=== PATIENT | female | born 1990 | race Caucasian/White ===

== ENCOUNTER 2019-01-05 14:00 | Emergency (ER) | payer OTHER, SELFPAY ==
[2019-01-05 14:04] VITALS: BP 115/76; PULSE 93; RESP 17; TEMP 36.9; O2SAT 99; BMI 23.8
[2019-01-05 15:00] VITALS: BP 117/79; PULSE 85; RESP 16; O2SAT 99
--- NOTE | 2019-01-05 15:12 | ED.HA ---
HPI - Headache <Mynor AndreaRONAK Wang - Last Filed: 01/06/19 01:50> General Chief Complaint: Headache Stated Complaint: DIZZY SHARP PAIN HEAD NAUSEA NUMBNESS OF HANDS Time Seen by Provider: 01/05/19 14:42 Source: patient and family Mode of arrival: ambulatory Limitations: no limitations History of Present Illness HPI Narrative: This is a 28-year-old female, nonsmoker, who presents with her spouse to ED with sudden onset of severe headache and she describes as lightening bolt at 1210 today when she was at work and she was sitting at the desk without exerting herself at this time. She felt dizzy, numbness to her hands, nauseated and had washing sounds in her ears. She also mentions about a week prior to this. She felt sharp and pressure-like left-sided headache and had a popped feel in the head and head pressure. During college, she had head trauma when she dropped onto her head and head concussion when she was cheering. Then again, without appropriate resting, she had dropped on her head again which sustained temporary left eye vision lost. She reports she has frequent headaches but this time headache felt different. Her usual migraine dull headache remains in left-sided top of her head and behind her eyes this with nausea, photosensitivity which lasts for 1-2 hours. Patient tried 1 of the blood pressure medication as prophylactically but she felt dizzy so she stopped after using for a week. Also her PCP prescribed 1 of the triptans and so far used twice. According to the patient's , patient seems confused that she did not know where she was at on the way to emergency room. Also he states that patient seems slow to respond verbally and also noticed slow movements. Patient denies weakness to limbs, facial droops, difficulty with balance at this time. The last LMP was April 2018. Prior to this she had a spontaneous miscarriage and since then her normal menstruation had not returned. Related Data Allergies Allergy/AdvReac Type Severity Reaction Status Date / Time latex Allergy Verified 01/05/19 14:09 minocycline Allergy Verified 01/05/19 14:09 Review of Systems <RONAK Brown - Last Filed: 01/06/19 01:50> Review of Systems General: Denies fever, chills, fatigue, malaise, sweats. HEENT: Denies sinus pain, ear pain, sore throat, difficulty swallowing. Respiratory: Denies dyspnea, cough, wheezing, hemoptysis, sputum. Cardiovascular: Denies chest pain, palpitations, orthopnea, edema. Gastrointestinal: Reports nausea. Denies vomiting, abdominal pain, diarrhea, constipation, melena. : Denies dysuria, frequency, incontinence, hematuria, urinary retention. Musculoskeletal: Denies weakness, joint pain or bony pain. Skin: Denies rash, skin lesions, or other. Neurologic: See HPI Psychiatric: No concerning psychosocial issues. 12-point review of systems is negative except for those stated above. PFSH <RONAK Brown - Last Filed: 01/06/19 01:50> Medical History Migraine headache (Acute) Spontaneous (Chronic) Social History Smoking Status: Unknown if ever smoked Social History (Updated 01/06/19 @ 01:25 by RONAK Brown) Smoking Status: Never smoker Exam <RONAK Brown - Last Filed: 01/06/19 01:50> Narrative Exam Narrative: GEN: Alert, oriented x 3, well appearing and nourished, and in no acute distress. Head: Normal cephalic, atraumatic. No scalp or temporal tenderness, palpable mass or rash. EYES: Pupils are equal, round, and reactive to light and accommodation. Extraocular muscles are intact bilaterally. There is no subconjunctival hemorrhage, exudate and sclera non-icteric. ENT: Hearing grossly intact. Nose without bleeding, purulent discharge. Mucous membrane moist, no mucosal lesion. Throat without erythema, tonsillar hypertrophy or exudate. Uvula in midline, airway patent. Neck: Trachea in midline. No JVD, non-tender without lymphadenopathy. No masses or thyroid megaly. Supple, non-tender and meningeal signs. CARDIAC: Normal regular rate and rhythm without murmurs, gallops, or rubs. No chest wall tenderness. No peripheral edema, cyanosis or pallor. Capillary refill is less than 2 seconds. No carotid bruits. RESPIRATORY: Lungs are cleat to auscultate bilaterally. No cough, wheezes, rales, or rhonchi. No stridor, respiratory distress, increase work of breathing, or accessary muscle used. ABD: Abdomen soft, nontender and non-distended. No guarding or rebound tenderness to palpate. Bowel sounds are normal in all 4 quadrants. There is no palpable masses or organomegaly. EXT: Full painless ROM of all extremities with no loss of sensation, strength, effusion or edema. SKIN: Warm, dry, normal color for patient. No erythema, lesions or rash. BACK: Nontender without deformity or crepitance. No flank tenderness. NEUROLOGICAL: Alert and oriented to place, time and person. No facial droops, dysphasia. CN II-XII intact. Strength and sensation symmetric on upper extremities. Decreased strength in bilateral lower extremities. Reflexes 2+ throughout. Cerebellar testing normal but slow. Slow to verbally response to questions. PSYCHIATRIC: Good judgement and reason, without hallucinations, abnormal affect or abnormal behaviors during the examination. Initial Vital Signs Initial Vital Signs: Vital Signs Temperature 98.4 F 01/05/19 14:04 Pulse Rate 93 H 01/05/19 14:04 Respiratory Rate 17 01/05/19 14:04 Blood Pressure 115/76 01/05/19 14:04 Pulse Oximetry 99 01/05/19 14:04 <Kristin Garcia DO - Last Filed: 01/06/19 19:27> Initial Vital Signs Initial Vital Signs: Vital Signs Temperature 98.4 F 01/05/19 14:04 Pulse Rate 93 H 01/05/19 14:04 Respiratory Rate 17 01/05/19 14:04 Blood Pressure 115/76 01/05/19 14:04 Pulse Oximetry 99 01/05/19 14:04 Scores <RONAK Brown - Last Filed: 01/06/19 01:50> GCS [place] coma scale eye opening: Spontaneous [place] coma scale verbal response: Orientated [place] coma scale motor response: Obey commands [place] coma scale total score: 15 Course <RONAK Brown - Last Filed: 01/06/19 01:50> Orders Ordered: Discontinued Medications Diphenhydramine HCl (Benadryl) 25 mg IV NOW ONE Stop: 01/05/19 15:54 Last Admin: 01/05/19 16:26 Dose: 25 mg Documented by: ALLISON Sodium Chloride (Normal Saline 0.9%) 1,000 mls @ 1,000 mls/hr IV BOLUS ONE Stop: 01/05/19 16:52 Last Infusion: 01/05/19 17:41 Dose: 0 mls/hr Documented by: Admin: 01/05/19 16:26 Dose: 1,000 mls/hr Documented by: ALLISON Ketorolac Tromethamine (Toradol) 30 mg IV NOW ONE Stop: 01/05/19 15:54 Last Admin: 01/05/19 16:26 Dose: 30 mg Documented by: ALLISON Metoclopramide HCl (Reglan) 10 mg IV NOW ONE Stop: 01/05/19 15:54 Last Admin: 01/05/19 16:27 Dose: 10 mg Documented by: ALLISON Vital Signs - 8 hr 01/05/19 17:30 Pulse Rate 98 H Respiratory Rate 19 Blood Pressure [Left Arm] 111/94 H Pulse Oximetry 100 <Kristin Garcia DO - Last Filed: 01/06/19 19:27> Orders Ordered: Discontinued Medications Diphenhydramine HCl (Benadryl) 25 mg IV NOW ONE Stop: 01/05/19 15:54 Last Admin: 01/05/19 16:26 Dose: 25 mg Documented by: ALLISON Sodium Chloride (Normal Saline 0.9%) 1,000 mls @ 1,000 mls/hr IV BOLUS ONE Stop: 01/05/19 16:52 Last Infusion: 01/05/19 17:41 Dose: 0 mls/hr Documented by: Admin: 01/05/19 16:26 Dose: 1,000 mls/hr Documented by: ALLISON Ketorolac Tromethamine (Toradol) 30 mg IV NOW ONE Stop: 01/05/19 15:54 Last Admin: 01/05/19 16:26 Dose: 30 mg Documented by: ALLISON Metoclopramide HCl (Reglan) 10 mg IV NOW ONE Stop: 01/05/19 15:54 Last Admin: 01/05/19 16:27 Dose: 10 mg Documented by: ALLISON Vital Signs - 8 hr 01/05/19 17:30 Pulse Rate 98 H Respiratory Rate 19 Blood Pressure [Left Arm] 111/94 H Pulse Oximetry 100 MDM - Headache <RONAK Brown - Last Filed: 01/06/19 01:50> Differential Diagnosis Differential diagnosis: Likely migraine, subarachnoid hemorrhage, headache and other (brain aneurysm) Medical Records Attestation: I reviewed the patient's medical records. Lab Data Point of Care Testing Test Results Negative Imaging Data CT scan - head: Radiologist's impression: [address] [address] [address] Scan Report Signed Patient: Bertha Haley [facility]#: [id number] : 1990Acct:[id number] Age/Sex: 28 / FDate of Service: 01/05/19 Loc: ED Accession Number: [id number] Procedure: CT head/brain wo con Ordering Provider: Mynor Jesus PROCEDURE: CT HEAD/BRAIN WO CON INDICATIONS: first time lighteing bolt headache, vision change, nausea TECHNIQUE: Noncontrast 4.5 mm thick angled axial sections acquired from the foramen magnum to the vertex, with coronal and sagittal reformats. For radiation dose reduction, the following was used: automated exposure control, adjustment of mA and/or kV according to patient size. COMPARISON: None. FINDINGS: Image quality: Excellent. CSF spaces: Basal cisterns are patent. No extra-axial fluid collections. Ventricles are normal in size and shape. Brain: No midline shift. No intracranial masses or hemorrhage. [place]-white matter interface is normal. Skull and face: Calvarium and visualized facial bones are intact, without suspicious lesions. Sinuses: Visualized sinuses and mastoids are clear. IMPRESSION: Negative head CT. No acute intracranial hemorrhage. Dictated by: George Santos M.D. on 01/05/2019 at 14:42 Approved by: George Santos M.D. on 01/05/2019 at 14:42 [facility] Narrative Medical decision making narrative: This patient is 28-year-old female presents to ED with sudden onset of severe atypical headache with neurological symptoms per her report and per physical exam. Head CT was obtained with negative acute findings. Urine test was negative. Patient was medicated with migraine headache medications-Toradol, Benadryl, Reglan and IV fluid. Patient reports much improved headache. Patient advised to follow up with primary care physician discussing of other options for prophylactic medications, a referral to headache clinic. Return precautions were discussed with patient and spouse they agree with treatment plan and no further questions were expressed at this time. <Kristin Garcia DO - Last Filed: 01/06/19 19:27> Lab Data Point of Care Testing Test Results Negative Discharge Plan Departure Patient Disposition: Home Clinical Impression: Migraine Qualifiers: Migraine type: unspecified Status migrainosus presence: without status migrainosus Intractability: not intractable Qualified Code(s): G43.909 - Migraine, unspecified, not intractable, without status migrainosus Discharge Date/Time: 01/05/19 17:57 Instructions: DI for Migraine Activity Restrictions/Additional Instructions: You have been diagnosed with [ headache, possibly migraine headache. Your CT scan today indicates no acute findings.]. What to do: *Take your medications as directed. Please continue with your current medication and there is no new medication to go home with today *Follow up with your primary care provider in 2-3 days, call for an appointment. Let them know you were seen in the ED and that we asked you to be seen in follow up. *Return to ED if you have any new, worsening, or concerning symptoms, such as [chest pain, breathing difficulty, unable to tolerate fluids, severe headache, vision change, weakness to limbs, speech difficulty, any acute concerns]. Referrals: [facility] [Outside] <Kristin Garcia DO - Last Filed: 01/06/19 19:27> Cosign ED Attending Chaparritaature Attestation: I was immediately available in the department for consultation. This documentation has been reviewed and I agree with assessment and plan. Supervised by Kristin Garcia DO
[2019-01-05 16:09] VITALS: BP 113/73; PULSE 75; RESP 15; O2SAT 100
[2019-01-05] MEDS: SODIUM CHLORIDE 0.9% 1,000 ML 1000 ML IV (16:26)
[2019-01-05] MEDS: diphenhydrAMINE 50 MG/ML VIAL 25 MG IV (16:26)
[2019-01-05] MEDS: KETOROLAC 60 MG/2 ML VIAL 30 MG IV (16:26)
[2019-01-05] MEDS: METOCLOPRAMIDE 10 MG/2 ML INJ IV (16:27)
[2019-01-05 16:30] VITALS: BP 101/49; PULSE 78; RESP 15; O2SAT 99
[2019-01-05 17:00] VITALS: BP 108/58; PULSE 77; RESP 15; O2SAT 100
[2019-01-05 17:30] VITALS: BP 111/94; PULSE 98; RESP 19; O2SAT 100
== END 2019-01-05 17:57 | disposition home or self-care (01) ==
PROVIDERS: Emergency Provider Nurse Practitioner Family
DX: G43.909 Migraine, unspecified, not intractable, without status migrainosus (principal)
CPT/HCPCS: 36591; 70450; 81025; 96361; 96374; 96375; 99283; 99284; J1200; J1885; J2765

== ENCOUNTER 2020-03-31 08:29 | Emergency (ER) | payer OTHER, SELFPAY ==
[2020-03-31 08:40] VITALS: BP 107/69; PULSE 88; RESP 16; TEMP 36.7; O2SAT 100; BMI 25.2
--- NOTE | 2020-03-31 09:07 | ED_ITS ---
HPI - Allergic Reaction General Chief complaint: Allergic Reaction Stated complaint: some sort of reaction,throat closing eyes swelling Time Seen by Provider: 03/31/20 08:45 Source: patient Mode of arrival: Family Vehicle Limitations: no limitations History of Present Illness HPI narrative: Patient is a 30-year-old female who presents with facial swelling and neck swelling. She has been having an ongoing rash for a few bloods. It is now on her neck and it has been there for a while as well she feels like it mi ght be getting a little bit worse. She denies any new exposures. She says she is able to speak and swallow without difficulty although her neck does feel tight. She woke up this morning and her face was puffy and her eyelids or red she says it might be getting little bit better. She actually took 50 mg of Benadryl prior to bed and woke up and felt like it was worse. She has not had any fever sweats or chills. MD complaint: facial swelling Related Data Previous Rx's Medication Instructions Recorded cephalexin [Keflex] 500 mg PO TID #21 cap 03/31/20 prednisone 40 mg PO DAILY #10 tab 03/31/20 Allergies Allergy/AdvReac Type Severity Reaction Status Date / Time latex Allergy Verified 03/31/20 08:39 minocycline Allergy Verified 03/31/20 08:39 Review of Systems Review of Systems Narrative: GENERAL: Denies chills, fatigue, malaise, fever, sweats, travel HEENT: Denies sinus pain, ear pain, sore throat, difficulty swallowing, neck pain RESPIRATORY: Denies dyspnea, cough, wheezing, hemoptysis, sputum. CARDIOVASCULAR: Denies chest pain, palpitations, orthopnea, edema GASTROINTESTINAL: Denies nausea, vomiting, abdominal pain, diarrhea, constipation, melena. : Denies dysuria, frequency, incontinence, hematuria, urinary retention, flank pain. MUSCULOSKELETAL: Denies weakness, joint pain, or bony pain SKIN: Ongoing skin rash which started in her armpits when she started a natural deodorant, now on her neck NEUROLOGIC: Denies weakness, dizziness, headache, numbness, change in speech, confusion PSYCHIATRIC: No concerning psychosocial issues. 12 point review of systems is negative except for those stated above and HPI Patient History Medical History (Updated 03/31/20 @ 10:31 by Natasha Guzmán DO) Migraine headache Spontaneous Social History Smoking Status: Never smoker Smoking Status: Never smoker alcohol intake frequency: holidays/special occasions only Substance Use Type: does not use Exam Initial Vital Signs Initial Vital Signs: Vital Signs Temperature 98.1 F 03/31/20 08:40 Pulse Rate 88 03/31/20 08:40 Respiratory Rate 16 03/31/20 08:40 Blood Pressure 107/69 03/31/20 08:40 Pulse Oximetry 100 03/31/20 08:40 GENERAL: Well-appearing, well-nourished and in no acute distress. HEENT: Head atraumatic,EOMI, pupils reactive, face is slightly swollen no erythema CARDIOVASCULAR: Regular rate and rhythm without murmurs, rubs or gallops. RESPIRATORY: Breath sounds equal bilaterally, no wheezes rales or rhonchi. Speaks in full sentences no difficulty ABDOMEN: Soft, nontender. Normoactive bowel sounds all 4 quadrants. No guarding or rebound. EXTREMITIES: Normal range of motion, no clubbing or edema. Neurovascularly intact NEUROLOGICAL: Alert and oriented x4.Normal gait and speech. SKIN: Mild erythema on the anterior neck from chin to sternum blanchable no vesicles Course Orders Ordered: ED Orders 03/31/20 08:45 Basic Metabolic Panel Urgent Complete Blood Count AUTO DIFF Stat Discontinued Medications Diphenhydramine HCl (Diphenhydramine 50 Mg/Ml Vial) 25 mg IV NOW ONE Stop: 03/31/20 09:07 Last Admin: 03/31/20 09:35 Dose: 25 mg Documented by: GLO Famotidine (Pepcid) 20 mg in 50 mls @ 200 mls/hr IV NOW ONE Stop: 03/31/20 09:20 Last Infusion: 03/31/20 10:39 Dose: 0 mls/hr Documented by: Admin: 03/31/20 09:35 Dose: 200 mls/hr Documented by: GLO Methylprednisolone (Methylprednisolone 125 Mg/2 Ml Vial) 125 mg IV NOW ONE Stop: 03/31/20 09:07 Last Admin: 03/31/20 09:32 Dose: 125 mg Documented by: GLO Vital Signs Vital signs: Vital Signs - 8 hr 03/31/20 08:40 03/31/20 09:40 03/31/20 10:55 Temperature 98.1 F Pulse Rate 88 82 80 Respiratory Rate 16 16 18 Blood Pressure 107/69 104/71 106/69 Pulse Oximetry 100 98 100 MDM - Allergic Reaction Lab Data Attestation: I reviewed the patient's lab results. Result diagrams: 03/31/20 08:45 03/31/20 08:45 Labs: Lab Results 03/31/20 03/31/20 Range/Units 08:45 08:45 WBC 7.5 (4.5-11.0) X10^3/uL RBC 4.56 (4.0-5.2) X10^6/uL Hgb 13.7 (12.0-16.0) g/dL Hct 40.7 (36-46) % MCV 89.4 (80-100) fL MCH 30.0 (26-34) PG MCHC 33.5 (30-36) % RDW 12.7 (11.6-14.8) % Plt Count 207 (150-400) X10^3/uL Neut % (Auto) 61.6 (50-75) % Lymph % (Auto) 28.0 (25-40) % [place] % (Auto) 7.3 (3-14) % Eos % (Auto) 2.7 (2-4) % Baso % (Auto) 0.4 (0-2) % Neut # (Auto) 4600 (7235-2493) /uL Lymph # (Auto) 2100 (2056-7963) /uL [place] # (Auto) 500 (0-900) /uL Eos # (Auto) 200 (0-450) /uL Baso # (Auto) 0 (0-100) /uL Sodium 140 (137-145) mmol/L Potassium 4.3 (3.4-5.1) mmol/L Chloride 106 (98-107) mmol/L Carbon Dioxide 28 (22-32) mmol/L BUN 13 (7-17) mg/dL Creatinine 0.63 (0.52-1.04) mg/dL Estimated GFR > 60.0 (>60) mL/min BUN/Creatinine Ratio 20.6 (6-22) Glucose 92 (70-100) mg/dL Calcium 9.3 (8.4-10.2) mg/dL MDM Narrative Medical decision making narrative: Patient is afebrile without leukocytosis. She is feeling much better after Solu-Medrol and Benadryl. She has a rash on her neck it has been there for number of weeks. At this time I do not think it is a deep space neck infection. She has no dental pain no tongue pain she is speaking easily However she has not tried antibiotics for it yet. Her topical antifungal medication and oral antifungal medication do not appear to be working. At this time will try antibiotics and continue with prednisone burst. She certainly does not seem to be having an anaphylactic reaction. She mostly upper eyes itching and facial swelling. Unclear what she is allergic to. I discussed all findings with the patient and , Education has been performed regarding treatment plan, diagnosis, warning signs and symptoms and all concerns have been addressed. Verbally agree with and understood all of the above. Discharge Plan Departure Patient Disposition: Home Clinical Impression: Allergic reaction Qualifiers: Encounter type: initial encounter Qualified Code(s): T78.40XA - Allergy, unspecified, initial encounter Cellulitis Qualifiers: Site of cellulitis: neck Qualified Code(s): L03.221 - Cellulitis of neck Instructions: DI for Anaphylaxis Activity Restrictions/Additional Instructions: *You have been diagnosed with cellulitis and allergic reaction *What to do: At this time I think he may have had allergic reaction to something is unclear what. However because your neck rash has been there for some time without any improvement seems to be getting slightly worse I think it is reasonable to start you on antibiotics. Please monitor this closely *Continue to take medications as directed Keflex 500 mg 3 times a day for 7 days Prednisone 40 mg once a day for 5 days Stop the topical medications *Follow up with your primary care provider in 2-3 days *Return to ER if you should have increasing redness, mouth pain including tongue or dental pain, swelling of the neck difficulty swallowing or speaking or any new, worsening or concerning symptoms Prescriptions: New prednisone 20 mg tablet 40 mg PO DAILY Qty: 10 RF: 0 cephalexin [Keflex] 500 mg capsule 500 mg PO TID Qty: 21 RF: 0
[2020-03-31 09:20] LABS: Add Manual Diff / Slide Review NO; Basophils Absolute Auto 0 /uL (0-100); Basophils Percent Auto 0.4 % (0-2); Eosinophils Absolute Auto 200 /uL (0-450); Eosinophils Percent Auto 2.7 % (2-4); Hematocrit 40.7 % (36-46); Hemoglobin 13.7 g/dL (12.0-16.0); Lymphocytes Absolute Auto 2100 /uL (1100-4500); Mean Corpuscular HGB Conc 33.5 % (30-36); Mean Corpuscular Volume 89.4 fL (80-100); Monocytes Absolute Auto 500 /uL (0-900); Monocytes Percent Auto 7.3 % (3-14); Neutrophils Absolute Auto 4600 /uL (1500-7000); Neutrophils Percent Auto 61.6 % (50-75); Platelet Count 207 X10^3/uL (150-400); Red Blood Cell Count 4.56 X10^6/uL (4.0-5.2); Red Cell Distribution Width 12.7 % (11.6-14.8); White Blood Cell Count 7.5 X10^3/uL (4.5-11.0)
[2020-03-31 09:25] LABS: BUN Creatinine Ratio 20.6 (6-22); Blood Urea Nitrogen 13 mg/dL (7-17); Calcium 9.3 mg/dL (8.4-10.2); Carbon Dioxide 28 mmol/L (22-32); Chloride 106 mmol/L (98-107); Estimated Glomerular Filt Rate > 60.0 mL/min (>60); Glucose 92 mg/dL (70-100); HEMOLYSIS 40 (0-50); Potassium 4.3 mmol/L (3.4-5.1); Sodium 140 mmol/L (137-145)
[2020-03-31] MEDS: methylPREDNISolone 125 MG/2 ML VIAL IV (09:32)
[2020-03-31] MEDS: FAMOTIDINE 20 MG/50 ML PIGGYBACK 200 MG IV (09:35)
[2020-03-31] MEDS: diphenhydrAMINE 50 MG/ML VIAL 25 MG IV (09:35)
[2020-03-31 09:40] VITALS: BP 104/71; PULSE 82; RESP 16; O2SAT 98
[2020-03-31 10:55] VITALS: BP 106/69; PULSE 80; RESP 18; O2SAT 100
== END 2020-03-31 10:57 | disposition home or self-care (01) ==
PROVIDERS: Emergency Provider Emergency Medicine
DX: T78.40XA Allergy, unspecified, initial encounter (principal); L03.221 Cellulitis of neck; R21 Rash and other nonspecific skin eruption
CPT/HCPCS: 36415; 80048; 85025; 96365; 96375; 99283; 99284; J1200; J2930